=== PATIENT | male | born 1970 | race American Indian/Alaskan Native ===

== ENCOUNTER 2018-04-25 15:54 | Emergency (ER) | payer BC ==
[2018-04-25] MEDS ORDERED: NACL 0.9% 1000 ML 1,000 ML IV ONE (19:21)
[2018-04-25 19:45] LABS: Basophils # (Auto) 0.1 K/mm3 (0.0-0.1); Basophils % (Auto) 0.6 % (0.0-1.8); Eosinophils # (Auto) 0.2 K/mm3 (0.0-0.4); Eosinophils % (Auto) 1.2 % (0.0-4.3); Hemoglobin 16.4 gm/dl (11.8-15.2); Lymphocytes # (Auto) 3.5 K/mm3 (1.2-5.4); Lymphocytes % (Auto) 26.7 % (13.4-35.0); Mean Corpuscular HGB Conc 35 % (32-34); Mean Corpuscular Hemoglobin 28 pg (28-32); Mean Corpuscular Volume 81 fl (84-94); Monocytes # (Auto) 0.9 K/mm3 (0.0-0.8); Platelet Count 316 K/mm3 (140-440); Red Cell Distribution Width 14.7 % (13.2-15.2)
[2018-04-25 19:57] LABS: Alanine Aminotransferase 30 units/L (7-56); Albumin 4.8 g/dL (3.9-5); BUN/Creatinine Ratio 9; Blood Urea Nitrogen 10 mg/dL (9-20); Calcium 9.8 mg/dL (8.4-10.2); Hemolysis Index 10
[2018-04-25] MEDS ORDERED: ZOFRAN IV ONE (20:29)
[2018-04-25] MEDS ORDERED: MORPHINE IV ONE (20:29)
[2018-04-25] MEDS ORDERED: DECADRON IV ONE (20:29)
[2018-04-25] MEDS ORDERED: PEPCID IV ONE (20:30)
--- NOTE | 2018-04-25 20:34 | Emergency Department Report ---
ED Abdominal Pain HPI - General Chief Complaint: Abdominal Pain Stated Complaint: STOMACH PAINS Time Seen by Provider: 04/25/18 20:23 Source: patient Mode of arrival: Ambulatory Limitations: No Limitations - History of Present Illness Initial Comments: Mr. Okeefe is a healthy 47-year-old male who presents with 2 years of abdominal pain. He's had episodes every few months. Now recently having monthly episodes of abdominal pain subjective fever sweats nausea vomiting. Most recent episode began yesterday. Gradual onset of diffuse crampy abdominal pain with vomiting sweats subjective fever. No diarrhea. No constipation. Last normal meal 2 days ago on April 23. He ate barbecue on that day. No family history of inflammatory bowel disease. No family history of significant medical illness. -: year(s) (2) Location: diffuse Radiation: R flank Severity: severe Quality: cramping, stabbing, sharp, dull Consistency: colicky Improves With: nothing Worsens With: nothing Associated Symptoms: nausea, vomiting, anorexia. denies: diarrhea - Related Data Previous Rx's Medication Instructions Recorded Last Taken Type Ciprofloxacin HCl [Cipro] 500 mg PO BID 7 Days #14 tablet 04/25/18 Unknown Rx HYDROcodone/APAP 5-325 [[place] 1 each PO Q4HR PRN #15 tablet 04/25/18 Unknown Rx 5/325] Promethazine [Phenergan TAB] 25 mg PO Q6HR PRN #20 tab 04/25/18 Unknown Rx metroNIDAZOLE [Metronidazole] 500 mg PO BID 7 Days #14 tablet 04/25/18 Unknown Rx Allergies Allergy/AdvReac Type Severity Reaction Status Date / Time No Known Allergies Allergy Unverified 04/25/18 16:08 ED Review of Systems ROS: Stated complaint: STOMACH PAINS Other details as noted in HPI Comment: All other systems reviewed and negative Constitutional: fever, malaise Cardiovascular: denies: chest pain Endocrine: excessive sweating Gastrointestinal: abdominal pain, nausea, vomiting. denies: diarrhea, constipation ED Past Medical Hx - Past Medical History Previous Medical History?: No - Surgical History Past Surgical History?: No - Family History Family history: no significant - Social History Smoking Status: Current Every Day Smoker Substance Use Type: Alcohol (drinks wine daily) - Medications Home Medications: Home Medications Medication Instructions Recorded Confirmed Last Taken Type Ciprofloxacin HCl [Cipro] 500 mg PO BID 7 Days #14 tablet 04/25/18 Unknown Rx HYDROcodone/APAP 5-325 [[place] 1 each PO Q4HR PRN #15 tablet 04/25/18 Unknown Rx 5/325] Promethazine [Phenergan TAB] 25 mg PO Q6HR PRN #20 tab 04/25/18 Unknown Rx metroNIDAZOLE [Metronidazole] 500 mg PO BID 7 Days #14 tablet 04/25/18 Unknown Rx ED Physical Exam - General Limitations: No Limitations General appearance: alert, in no apparent distress - Head Head exam: Present: atraumatic, normocephalic - Eye Eye exam: Present: normal appearance - ENT ENT exam: Present: mucous membranes moist - Neck Neck exam: Present: normal inspection. Absent: tenderness, meningismus - Respiratory Respiratory exam: Present: normal lung sounds bilaterally. Absent: respiratory distress, wheezes, rales, rhonchi - Cardiovascular Cardiovascular Exam: Present: regular rate, normal rhythm, normal heart sounds. Absent: systolic murmur, diastolic murmur, rubs, gallop - GI/Abdominal GI/Abdominal exam: Present: soft, normal bowel sounds. Absent: distended, tenderness, guarding, rebound - Rectal Rectal exam: Present: deferred - Extremities Exam Extremities exam: Present: normal inspection - Back Exam Back exam: Present: normal inspection - Neurological Exam Neurological exam: Present: alert, oriented X3 - Psychiatric Psychiatric exam: Present: normal affect, normal mood - Skin Skin exam: Present: warm, dry, intact, normal color. Absent: rash ED Course Vital Signs 04/25/18 04/25/18 04/25/18 16:09 20:09 20:15 Temperature 98.6 F Pulse Rate 81 79 70 Respiratory 16 23 12 Rate Blood Pressure 170/100 158/100 O2 Sat by Pulse 99 95 Oximetry 04/25/18 04/25/18 20:30 21:03 Temperature Pulse Rate 74 89 Respiratory 19 Rate Blood Pressure 156/102 151/104 O2 Sat by Pulse 93 99 Oximetry ED Medical Decision Making - Lab Data Result diagrams: 04/25/18 19:33 04/25/18 19:33 Laboratory Results - last 24 hr 04/25/18 04/25/18 19:33 19:33 WBC 13.1 H RBC 5.80 H Hgb 16.4 H Hct 47.0 H MCV 81 L MCH 28 MCHC 35 H RDW 14.7 Plt Count 316 Lymph % (Auto) 26.7 [place] % (Auto) 7.0 Eos % (Auto) 1.2 Baso % (Auto) 0.6 Lymph # 3.5 [place] # 0.9 H Eos # 0.2 Baso # 0.1 Seg Neutrophils % 64.5 Seg Neutrophils # 8.4 H Sodium 139 Potassium 3.8 Chloride 94.6 L Carbon Dioxide 29 Anion Gap 19 BUN 10 Creatinine 1.1 Estimated GFR > 60 BUN/Creatinine Ratio 9 Glucose 105 H Calcium 9.8 Total Bilirubin 0.80 AST 21 ALT 30 Alkaline Phosphatase 83 Total Protein 7.7 Albumin 4.8 Albumin/Globulin Ratio 1.7 Vital Signs - 24 hr /04/07 16:09 Temperature 98.6 F Pulse Rate 81 Respiratory 16 Rate Blood Pressure 170/100 O2 Sat by Pulse 99 Oximetry - Medical Decision Making 2 years of abdominal pain with nausea vomiting subjective fever. Differential diagnosis includes IBS versus inflammatory bowel disease. I reviewed CT abdomen and pelvis results with the patient and at the bedside. They understand my concern for possible cancer. He does have multiple liver lesions with enlarged prostate. He also has significant intra- abdominal lymphadenopathy. They both understand the need for urgent oupatient w /u including abominal MRI. Also recommended gastroenterology consultation. I gave the patient a copy of his labs and CT report. Also prescribed antibiotic Cipro and Flagyl. Also provided rx: norco and Promethazine. If neoplasm/malignancy is ruled out, he will need further evaluation by floor layer. I have referred him to the outpatient physician tanning solution maker as well as a floor layer Critical care attestation.: If time is entered above; I have spent that time in minutes in the direct care of this critically ill patient, excluding procedure time. ED Disposition Clinical Impression: Liver lesion, Lymphadenopathy, periaortic Disposition: DC-01 TO HOME OR SELFCARE Is pt being admited?: No Does the pt Need Aspirin: No Condition: Stable Instructions: Abdominal Pain (ED) Additional Instructions: You will need outpatient MRI of the abdomen to ensure that you do not have cancer. You have small tumors on your liver. You have an enlarged prostate. You also have enlarged lymph nodes. Prescriptions: Ciprofloxacin HCl [Cipro] 500 mg PO BID 7 Days #14 tablet HYDROcodone/APAP 5-325 [[place] 5/325] 1 each PO Q4HR PRN #15 tablet PRN Reason: Pain metroNIDAZOLE [Metronidazole] 500 mg PO BID 7 Days #14 tablet Promethazine [Phenergan TAB] 25 mg PO Q6HR PRN #20 tab PRN Reason: Nausea Referrals: MILLA COLIN MD [Staff Physician] - 3-5 Days ZACHARIAH GARDUNO MD [Staff Physician] - 3-5 Days Time of Disposition: 22:14
--- NOTE | 2018-04-25 21:22 | Cat Scan Report ---
FINAL REPORT PROCEDURE: CT ABDOMEN PELVIS W CON TECHNIQUE: Computerized axial tomography of the abdomen and pelvis was performed after the IV injection of iodinated nonionic contrast. HISTORY: abdomina pain vomiting fever COMPARISON: No prior studies are available for comparison. FINDINGS: There are 4 irregular, inhomogeneous, ill-defined hypervascular lesions involving segments 4, 6 and 8 largest measuring 2.3 x 1.8 centimeters. These lesions become isodense on delayed phase imaging. Spleen, pancreas and left adrenal gland are within normal limits. Right adrenal demonstrates a hypo enhancing lesion measuring 2.0 x 1.8 centimeters. Bilateral kidneys demonstrate uniform enhancement without hydronephrosis. Urinary bladder is partially filled with normal outlines. Aorta is of normal caliber. There is no free fluid or free air. Gallbladder is unremarkable. Small bowel loops are within normal limits. Appendix is normal. There is mild degree prostatomegaly. Mild degree left para-aortic and peripancreatic lymphadenopathy is noted. Vertebral height is normal. IMPRESSION: Multiple focal lesions of bilateral lobes of liver most likely represent hemangiomas as visualized on this 2 phase imaging. However neoplastic lesions cannot be excluded. MRI pre and post contrast is recommended. Hypo enhancing right adrenal nodule is of nonspecific nature. This can also be further evaluated using MRI. Mild degree left para-aortic and peripancreatic lymphadenopathy is noted. Neoplastic etiology is suspected. Mild prostatomegaly.
[2018-04-25 21:33] LABS: Bilirubin,Urine NEG (Negative); Blood,Urine SM (Negative); Color,Urine Yellow (Yellow); Mucus,Urine 3+ /HPF; Protein,Urine <15 mg/dL mg/dL (Negative); WBC,Urine < 1.0 /HPF (0.0-6.0)
[2018-04-25 22:53] VITALS: BP 138/87
== END 2018-04-25 22:54 | disposition home or self-care (01) ==
LOC: ED 15:54
DX: R10.84 Generalized abdominal pain (principal); R50.9 Fever, unspecified; R11.2 Nausea with vomiting, unspecified; R59.9 Enlarged lymph nodes, unspecified; K76.89 Other specified diseases of liver; F17.200 Nicotine dependence, unspecified, uncomplicated
CPT/HCPCS: 36415; 74177; 80053; 81001; 85025; 96361; 96374; 96375; 99284; J1100; J2270; J2405; J7030; Q9967